=== PATIENT | male | born 1985 | race African-American/Black ===

== ENCOUNTER 2019-06-15 13:47 | Emergency (ER) | payer MEDICAID ==
[~2019-06-15] VITALS: Ht 182.9 cm; Wt 80.0 kg
--- NOTE | 2019-06-15 14:15 | NUR ---
BIB BY [facility]-PATIENT REPORTS VAGUE SUICIDAL IDEATION (NO PLAN) D/T INCREASES STRESS LATELY (LOST HOUSING/NAMS STOPPING PRESCRIBING HIS ABILITFY). DOES REPORT HX OF METH USE WELL SUICIDE ATTEMPTS X2 (OD ON MEDICINES AND ATTEMPTING CUTTING OF THROAT-LAST ATTEMPT MULTIPLE MONTHYS AGO). REPORTS HX OF ADITORY HALLUCINATIONS/NOTHING IN THE LAST FEW WEEK ER PROVIDER TO PLACE PSYCHIATRIC HOLD-HAVE PSYCHIATRY ASSESS ROOM SECURED BELONGINGS INVENTORIED (3 TOTAL PIECES OF LUGGAGE, 2 WHITE PLATIC BELONGING BAGS AND ONE PIECE OF REGULAR LUGGAGE) UDS SENT
--- NOTE | 2019-06-15 14:19 | NUR ---
PSYCHIATRY ALUMINUM MOLDER AT BEDSIDE
[2019-06-15 14:51] LABS: AMPHETAMINE SCREEN, URINE Positive (Negative); BARBITURATE SCREEN, URINE Negative (Negative); BENZODIAZEPINE SCREEN, URINE Negative (Negative); CANNABINOID SCREEN, URINE Positive (Negative); COCAINE SCREEN, URINE Negative (Negative); METHADONE SCREEN, URINE Negative (Negative); OPIATE SCREEN, URINE Negative (Negative)
[2019-06-15] MEDS ORDERED: ARIP400S3 IM (14:55)
[2019-06-15] MEDS ORDERED: ARIPIPRAZOLE 400 MG INJ NC IM ONE (15:00)
[2019-06-15 15:01] LABS: ALANINE AMINOTRANSFERASE 15 U/L (12-78); ALBUMIN 3.5 g/dL (3.4-5.0); ANION GAP 3 mmol/L (5-15); CALCIUM 8.5 mg/dL (8.5-10.1); CHLORIDE 113 mmol/L (98-107)
[2019-06-15 15:04] LABS: ALKALINE PHOSPHATASE 63 U/L (45-117); BILIRUBIN,TOTAL 0.6 mg/dL (0.2-1.0); CREATININE 1.04 mg/dL (0.7-1.3); TOTAL PROTEIN 5.8 g/dL (6.4-8.2)
[2019-06-15 15:07] LABS: SALICYLATE LEVEL < 1.7 mg/dL (2.8-20.0)
[2019-06-15] MEDS ORDERED: ARIPIPRAZOLE 5 MG TABLET ONE (15:12)
[2019-06-15] MEDS: ARIPIPRAZOLE 5 MG TABLET PO SCH (15:17)
[2019-06-15 15:35] LABS: BASOPHILS # (AUTO) 0.03 x10^3/uL (0-0.1); BASOPHILS % (AUTO) 1 % (0-1); EOSINOPHILS # (AUTO) 0.13 x10^3/uL (0-0.4); EOSINOPHILS % (AUTO) 4 % (1-7); LYMPHOCYTES # (AUTO) 1.19 x10^3/uL (1-3.4); LYMPHOCYTES % (AUTO) 33 % (22-44); MD NO; MEAN CORPUSCULAR HGB CONC 32.9 g/dL (33.2-36.2); MEAN CORPUSCULAR VOLUME 100.3 fL (81-97); MEAN PLATELET VOLUME 9.4 fL (7.4-10.4); MONOCYTES # (AUTO) 0.24 x10^3/uL (0.2-0.8); MONOCYTES % (AUTO) 7 % (2-9); NEUTROPHILS # (AUTO) 2.05 x10^3/uL (1.8-6.8); NEUTROPHILS % (AUTO) 56 % (42-75); PLATELET COUNT 150 x10^3/uL (130-400); RED BLOOD COUNT 3.97 x10^6/uL (4.38-5.82); RED CELL DISTRIBUTION WIDTH 13.4 % (9.4-14.8)
--- NOTE | 2019-06-15 16:11 | NUR ---
PT RESTING WITH NO COMPLAINTS AND WATCHING TV. PATIENT CALM AND COOPERATIVE. PATIENT REMAINS UNDER CONSTANT SUPERVISION OF SITTER AND REMAINS SAFE.
--- NOTE | 2019-06-15 16:44 | NUR ---
Throughput RN note: Pt's chart faxed to [facility], [facility], [facility].
--- NOTE | 2019-06-15 17:20 | NUR ---
Throughput RN note: Pt declined by [facility] due to being "Fee for Service" status with his Medicaid.
--- NOTE | 2019-06-15 19:06 | NUR ---
REPORT RECEIVED FROM CHAPIS AREVALO. PLAN OF CARE DISCUSSED. SITTER AT DOOR.
--- NOTE | 2019-06-15 20:20 | NUR ---
PATIENT SLEEPING AT THIS TIME, NAD, RESPIRATIONS EVEN AND UNLABORED, SITTER AT DOOR.
--- NOTE | 2019-06-15 22:19 | NUR ---
PATIENT SLEEPING AT THIS TIME, NAD, RESPIRATIONS EVEN AND UNLABORED, SITTER AT DOOR.
--- NOTE | 2019-06-15 23:37 | NUR ---
PATIENT SLEEPING AT THIS TIME, NAD, RESPIRATIONS EVEN AND UNLABORED, SITTER AT DOOR.
--- NOTE | 2019-06-16 00:05 | NUR ---
task RN: Pt resting on hosptial bed, watching tv. no acute distress with respirations even and unlabored. sitter at doorway for frequent checks.
--- NOTE | 2019-06-16 00:28 | NUR ---
PATIENT WATCHING TV AT THIS TIME, NAD, RESPIRATIONS EVEN AND UNLABORED, SITTER AT DOOR. PATIENT HAS CONTACT LENSES IN, PROVIDED PATIENT WITH CONTACT LENS CASE WITH SALINE, PATIENT DECLINED TO TAKE CONTACT LENSES OUT AT THIS TIME
--- NOTE | 2019-06-16 01:20 | NUR ---
PATIENT SLEEPING AT THIS TIME, NAD, RESPIRATIONS EVEN AND UNLABORED, SITTER AT DOOR.
--- NOTE | 2019-06-16 02:21 | NUR ---
PATIENT SLEEPING AT THIS TIME, NAD, RESPIRATIONS EVEN AND UNLABORED, SITTER AT DOOR.
--- NOTE | 2019-06-16 03:42 | NUR ---
PATIENT SLEEPING AT THIS TIME, NAD, RESPIRATIONS EVEN AND UNLABORED, SITTER AT DOOR.
--- NOTE | 2019-06-16 04:29 | NUR ---
PATIENT SLEEPING AT THIS TIME, NAD, RESPIRATIONS EVEN AND UNLABORED, SITTER AT DOOR.
--- NOTE | 2019-06-16 05:02 | NUR ---
PATIENT REMOVED CONTACT LENSES AND PLACED IN LENS CASE WITH SALINE. LENS CASE WITH SITTER.
[2019-06-16 06:00] VITALS: BP 116/75
--- NOTE | 2019-06-16 06:07 | NUR ---
PATIENT RESTING IN BED, VSS, NAD, SITTER AT DOOR. MEAL TRAY ORDERED.
--- NOTE | 2019-06-16 06:55 | NUR ---
BEDSIDE REPORT GIVEN TO CHAPIS PACK. PLAN OF CARE DISCUSSED. SITTER AT DOOR
--- NOTE | 2019-06-16 07:01 | NUR ---
Report from [facility]. Pt resting in bed with eyes closed, resp even and unlabored, TEGAN. Room is secured, sitter within eyesight of pt, all safety measures observed.
[2019-06-16] MEDS ORDERED: ARIPIPRAZOLE 5 MG TABLET ONE (07:59)
[2019-06-16] MEDS: ARIPIPRAZOLE 5 MG TABLET PO SCH (08:08)
--- NOTE | 2019-06-16 08:08 | NUR ---
Pt medicated per MAR and provided breakfast tray and Sprite with SI precautions observed. Discussed pt's thoughts of hurting self or others. Pt states "I don't know, I'm still homeless, I don't know what to do." POC discussed with pt. Pt denies other needs.
--- NOTE | 2019-06-16 09:11 | NUR ---
Pt resting in bed with eyes closed, resp even and unlabored, NADN.
--- NOTE | 2019-06-16 10:08 | NUR ---
Pt continues resting in bed with eyes closed, resp even and unlabored, NADN.
--- NOTE | 2019-06-16 11:01 | NUR ---
Pt continues resting in bed with eyes closed, resp even and unlabored, NADN.
--- NOTE | 2019-06-16 11:18 | NUR ---
Pt ambulatory to shower with male tech as manugrapher. Pt provided toothbrush, toothpaste, chapstick, cup, soap, towels and fresh gown. While pt in the shower pt's bed linens changed, tray table wiped down by this RN. Room floor mopped by housekeeping. Room remains secured.
--- NOTE | 2019-06-16 11:36 | NUR ---
Pt back to room, provided Spite per request. Pt denies other needs.
--- NOTE | 2019-06-16 11:50 | NUR ---
Lunch tray ordered for pt.
--- NOTE | 2019-06-16 12:14 | NUR ---
LUNCH TRAY AND SPRITE SERVED TO PATIENT.
--- NOTE | 2019-06-16 13:00 | NUR ---
Erika MO in to speak with pt.
--- NOTE | 2019-06-16 14:09 | NUR ---
Pt sitting in bed, TEGAN. Erika MO states pt to be dc'd. Awaiting paperwork.
--- NOTE | 2019-06-16 14:27 | NUR ---
Med requested from pharmacy.
[2019-06-16] MEDS ORDERED: ARIPIPRAZOLE 400 MG INJ NC IM ONE ×2 (14:30→15:00)
== END 2019-06-16 15:03 | disposition home or self-care (01) ==
LOC: ED 14:16
DX: R45.851 Suicidal ideations (principal); F32.9 Major depressive disorder, single episode, unspecified; Z91.14 Patient's other noncompliance with medication regimen
CPT/HCPCS: 36415; 80053; 80307; 85025; 96372; 99284

== ENCOUNTER 2020-01-17 23:37 | Emergency (ER) | payer MEDICAID ==
[~2020-01-17] VITALS: Ht 172.7 cm; Wt 68.5 kg
[~2020-01-17 23:37] MED LIST: ARIP400S3 IM
[2020-01-17 23:39] VITALS: BP 122/82
--- NOTE | 2020-01-18 02:43 | NUR ---
RLQ pain resolved. States to this RN and MD that he does not want additional w/u. States he will return with worsening pain. Info for PCP set up provided to pt with d/c instructions
== END 2020-01-18 02:46 | disposition home or self-care (01) ==
LOC: ED 01-18 02:36
DX: R10.11 Right upper quadrant pain (principal); F15.129 Other stimulant abuse with intoxication, unspecified; Z72.9 Problem related to lifestyle, unspecified
CPT/HCPCS: 99281